=== PATIENT | male | born 1970 | race Caucasian/White ===

== ENCOUNTER → 2017-05-23 | Outpatient (CLI) | payer BC ==
[2017-05-23 13:54] LABS: ALBUMIN 3.7 GM/DL (3.2-5.2); ALBUMIN/GLOBULIN RATIO 1.19 (1.00-1.93); ALKALINE PHOSPHATASE 82 U/L (45-117); ALT/SGPT 39 U/L (12-78); ANION GAP 5 MEQ/L (8-16); AST/SGOT 25 U/L (15-37); BILIRUBIN,TOTAL 0.9 MG/DL (0.2-1.0); BLOOD UREA NITROGEN 26 MG/DL (7-18); CALCIUM LEVEL 9.2 MG/DL (8.5-10.1); CARBON DIOXIDE LEVEL 29 MEQ/L (21-32); CHLORIDE LEVEL 104 MEQ/L (98-107); CHOLESTEROL LEVEL 147 MG/DL (<200); CREATININE FOR GFR 1.28 MG/DL (0.70-1.30); GLOMERULAR FILTRATION RATE > 60.0 (>60); GLUCOSE, FASTING 98 MG/DL (70-105); POTASSIUM SERUM 3.5 MEQ/L (3.5-5.1); SODIUM LEVEL 138 MEQ/L (136-145); TOTAL PROTEIN 6.8 GM/DL (6.4-8.2); TRIGLYCERIDES LEVEL 141 MG/DL (<150)
[2017-05-23 13:57] LABS: MEAN CORPUSCULAR HGB CONC 34.3 g/dl (32.0-36.5); MEAN CORPUSCULAR VOLUME 87.3 fl (80.0-96.0)
== END ==
LOC: M WUC 08:37
PROVIDERS: ATTEND Family Medicine
DX: I10 Essential (primary) hypertension (principal)

== ENCOUNTER 2018-11-05 10:50 | Emergency (ER) | payer BC ==
[~2018-11-05] VITALS: Ht 182.9 cm; Wt 90.9 kg
[2018-11-05] MEDS ORDERED: HYDR25TAB (11:03)
[2018-11-05] MEDS ORDERED: FISH1000 PO (11:03)
[2018-11-05 11:22] LABS: BASO # 0.1 10^3/uL (0.0-0.2); BASO % 0.7 % (0.0-1.0); EOS # 0.3 10^3/uL (0.0-0.50); EOS % 3.7 % (0.0-3.0); HEMATOCRIT 52.2 % (42.0-52.0); HEMOGLOBIN 17.9 g/dl (13.5-17.5); LYMPH # 1.4 10^3/uL (1.5-4.5); LYMPH % 15.9 % (24.0-44.0); MEAN CORPUSCULAR HEMOGLOBIN 29.6 pg (27.0-33.0); MEAN CORPUSCULAR HGB CONC 34.3 g/dl (32.0-36.5); MEAN CORPUSCULAR VOLUME 86.3 fl (80.0-96.0); MONO # 0.6 10^3/uL (0.0-0.8); MONO % 6.9 % (0.0-5.0); NEUTROPHILS # 6.6 10^3/uL (1.8-7.7); NEUTROPHILS % 72.4 % (36.0-66.0); PLATELET COUNT, AUTOMATED 182 10^3/uL (150-450); RED BLOOD COUNT 6.05 10^6/uL (4.30-6.10); WHITE BLOOD COUNT 9.1 10^3/uL (4.0-10.0)
[2018-11-05] MEDS ORDERED: METOPROLOL TART 50 MG TAB PO ONE (11:30)
[2018-11-05] MEDS: METOPROLOL 5 MG/5 ML VIAL IV SCH ×6 (11:32→12:55)
[2018-11-05 11:33] LABS: INR 1.02; PARTIAL THROMBOPLASTIN TIME 27.8 SECONDS (25.4-37.6); PROTHROMBIN TIME 13.5 SECONDS (12.1-14.4)
[2018-11-05 11:44] LABS: D-DIMER QUANT < 270 ng/ml (<500)
[2018-11-05 11:58] LABS: BLOOD UREA NITROGEN 15 MG/DL (7-18); CALCIUM LEVEL 8.8 MG/DL (8.5-10.1); CARBON DIOXIDE LEVEL 28 MEQ/L (21-32); CHLORIDE LEVEL 104 MEQ/L (98-107); CPK CREATINE PHOSPHOKINASE 75 U/L (39-308); CREATININE FOR GFR 1.22 MG/DL (0.70-1.30); ETHYL ALCOHOL (ETHANOL) < 0.003 % (0.000-0.010); GLOMERULAR FILTRATION RATE > 60.0 (>56); GLUCOSE, FASTING 91 MG/DL (70-100); MAGNESIUM LEVEL 2.1 MG/DL (1.8-2.4); MB/CK RELATIVE INDEX 1.33 (< OR =4); NT-PRO BNP 773 PG/ML (<125); POTASSIUM SERUM 4.1 MEQ/L (3.5-5.1); SODIUM LEVEL 139 MEQ/L (136-145); TROPONIN I < 0.02 NG/ML (< 0.10)
[2018-11-05 12:04] LABS: AMPHETAMINES LEVEL URINE NEGATIVE (NEGATIVE); BARBITURATES URINE NEGATIVE (NEGATIVE); BENZODIAZEPINES URINE NEGATIVE (NEGATIVE); CANNABINOIDS URINE NEGATIVE (NEGATIVE); COCAINE METABOLITE URINE NEGATIVE (NEGATIVE); METHADONE URINE NEGATIVE (NEGATIVE); OPIATES URINE NEGATIVE (NEGATIVE); PHENCYCLIDINE URINE NEGATIVE (NEGATIVE)
[2018-11-05 12:45] VITALS: BP 123/86
--- NOTE | 2018-11-05 12:49 | REP ---
PORTABLE CHEST X-RAY: Sitting AP view. HISTORY: Chest pain. COMPARISON CHEST X-RAY: July 10, 2016. FINDINGS: EKG monitoring electrodes overlie the chest. Heart size is normal. Pulmonary vasculature is not increased. There is minimal linear fibrosis in the left lateral pleural angle. No infiltrate is seen. No significant bony abnormality. IMPRESSION: Minimal linear fibrosis in the left lateral pleural angle. Otherwise no active disease. Electronically Signed by Rahul Jackson MD 11/05/2018 05:04 P
[2018-11-05] MEDS ORDERED: ASPI325T25 PO (13:56)
[2018-11-05] MEDS ORDERED: ATEN25TA PO (13:56)
[2018-11-05] MEDS ORDERED: ASPIRIN 325 MG TAB PO ONE (14:00)
[2018-11-05 14:16] VITALS: BP 116/82
--- NOTE | 2018-11-07 07:51 | ECGEPIP ---
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
--- NOTE | 2018-11-07 07:52 | ECGEPIP ---
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
== END 2018-11-05 14:34 | disposition home or self-care (01) ==
LOC: M ED 10:50
DX: I48.91 Unspecified atrial fibrillation (principal); I10 Essential (primary) hypertension; Z79.899 Other long term (current) drug therapy
CPT/HCPCS: 36415; 71045; 80048; 80307; 82550; 82553; 83735; 83880; 84443; 84484; 85025; 85379; 85610; 85730; 93005; 93041; 94760; 96374; 99285; G0480

== ENCOUNTER 2018-12-04 07:00 | Emergency (ER) | payer BC ==
[~2018-12-04] VITALS: Ht 182.9 cm; Wt 90.9 kg
[~2018-12-04 07:00] MED LIST: ASPI325T25 PO; ATEN25TA PO; FISH1000 PO; HYDR25TAB
[2018-12-04] MEDS ORDERED: ACET1TAB55 PO (07:05)
[2018-12-04] MEDS ORDERED: NS 1,000 ML IV ONE (07:30)
--- NOTE | 2018-12-04 08:09 | REPVR ---
EXAM: CT Head Without Contrast EXAM DATE/TIME: 12/04/2018 7:22 AM CLINICAL HISTORY: 48 years old, male; Pain; Headache; Additional info: Sudden onset headache; Different than usual TECHNIQUE: Axial computed tomography images of the head/brain without contrast. All CT scans at this facility use at least one of these dose optimization techniques: automated exposure control; mA and/or kV adjustment per patient size (includes targeted exams where dose is matched to clinical indication); or iterative reconstruction. COMPARISON: No relevant prior studies available. FINDINGS: Brain: No CT evidence of acute cortical infarct. No mass effect. No edema. There is no evidence of parenchymal hemorrhage. No extra-axial collections. No subarachnoid blood. Ventricles: The ventricular system is midline and appropriate in size. No hydrocephalus. Bones/joints: There is no evidence of acute fracture. Sinuses: The demonstrated paranasal sinuses are free of air-fluid level or suspicious mass. Mastoid air cells: Mastoids are free of acute inflammatory change. Soft tissues: No large soft tissue hematoma. Please correlate clinically. Vasculature: Cerebrovascular calcifications are noted. IMPRESSION: No acute intracranial injury demonstrated. No intracranial hemorrhage. No evidence of acute cortical infarct. No mass effect. No edema. Followup as clinically warranted. Electronically signed by: Loco Soliman On 12/04/2018 08:08:50 AM
[2018-12-04] MEDS ORDERED: KETOROLAC 30 MG/ML VIAL (J1885) IV ONE (08:15)
[2018-12-04] MEDS ORDERED: diphenhydrAMINE INJ 50MG/ML VIAL (J1200) IV ONE (08:15)
[2018-12-04] MEDS ORDERED: METOCLOPRAMIDE INJ 10MG/2ML VIAL (J2765) IV ONE (08:15)
[2018-12-04 09:49] VITALS: BP 130/70
== END 2018-12-04 09:51 | disposition home or self-care (01) ==
LOC: M ED 07:00
DX: R51 Headache (principal); I10 Essential (primary) hypertension; I48.91 Unspecified atrial fibrillation; Z79.899 Other long term (current) drug therapy; Z79.82 Long term (current) use of aspirin
CPT/HCPCS: 70450; 96374; 96375; 99284; J1200; J1885; J2765

== ENCOUNTER → 2019-04-23 | Outpatient (CLI) | payer BC ==
[~2019-04-23] MED LIST changes: +ACET1TAB55 PO; +ASPI-255 PO; -ASPI325T25 PO
[2019-04-23 19:33] LABS: BLOOD UREA NITROGEN 21 MG/DL (7-18); CALCIUM LEVEL 8.5 MG/DL (8.5-10.1); CARBON DIOXIDE LEVEL 26 MEQ/L (21-32); CHLORIDE LEVEL 111 MEQ/L (98-107); CREATININE FOR GFR 1.25 MG/DL (0.70-1.30); GLOMERULAR FILTRATION RATE > 60.0 (>56); GLUCOSE, FASTING 89 MG/DL (70-100); POTASSIUM SERUM 4.3 MEQ/L (3.5-5.1); SODIUM LEVEL 144 MEQ/L (136-145)
== END ==
LOC: M WUC 16:57
PROVIDERS: ATTEND Internal Medicine Cardiovascular Disease
DX: I48.91 Unspecified atrial fibrillation (principal)

== ENCOUNTER → 2019-07-03 | Outpatient (REF) | payer BC ==
[2019-07-03 19:51] LABS: BLOOD UREA NITROGEN 19 MG/DL (7-18); CALCIUM LEVEL 9.3 MG/DL (8.5-10.1); CARBON DIOXIDE LEVEL 29 MEQ/L (21-32); CHLORIDE LEVEL 109 MEQ/L (98-107); GLOMERULAR FILTRATION RATE > 60.0 (>56); GLUCOSE, FASTING 99 MG/DL (70-100); POTASSIUM SERUM 4.1 MEQ/L (3.5-5.1); SODIUM LEVEL 144 MEQ/L (136-145)
== END ==
LOC: M LAB REF 15:20
PROVIDERS: ATTEND Physician Assistant
DX: I11.9 Hypertensive heart disease without heart failure (principal)

== ENCOUNTER → 2020-11-17 | Outpatient (CLI) | payer BC ==
[~2020-11-17] MED LIST changes: +HYDR-3490; -HYDR25TAB
[2020-11-17 11:33] LABS: BASO % 0.7 % (0.0-1.0); EOS # 0.3 10^3/uL (0.0-0.5); EOS % 6.4 % (0.0-3.0); HEMATOCRIT 47.3 % (42.0-52.0); HEMATOCRIT 47.4 % (42.0-52.0); HEMOGLOBIN 15.4 g/dl (13.5-17.5); HEMOGLOBIN 15.6 g/dl (13.5-17.5); LYMPH # 1.4 10^3/uL (1.5-5.0); LYMPH % 25.5 % (24.0-44.0); MEAN CORPUSCULAR HEMOGLOBIN 28.7 pg (27.0-33.0); MEAN CORPUSCULAR HEMOGLOBIN 29.3 pg (27.0-33.0); MEAN CORPUSCULAR HGB CONC 32.5 g/dl (32.0-36.5); MEAN CORPUSCULAR VOLUME 88.4 fl (80.0-96.0); MEAN CORPUSCULAR VOLUME 88.9 fl (80.0-96.0); MONO # 0.4 10^3/uL (0.0-0.8); MONO % 7.3 % (0.0-5.0); NEUTROPHILS # 3.2 10^3/uL (1.5-8.5); NEUTROPHILS % 59.9 % (36.0-66.0); PLATELET COUNT, AUTOMATED 175 10^3/uL (150-450); PLATELET COUNT, AUTOMATED 178 10^3/uL (150-450); RED BLOOD COUNT 5.32 10^6/uL (4.30-6.10); RED BLOOD COUNT 5.36 10^6/uL (4.30-6.10); WHITE BLOOD COUNT 5.3 10^3/uL (4.0-10.0); WHITE BLOOD COUNT 5.4 10^3/uL (4.0-10.0)
[2020-11-17 12:24] LABS: ALBUMIN 3.7 GM/DL (3.2-5.2); ALT/SGPT 31 U/L (12-78); BILIRUBIN,TOTAL 0.6 MG/DL (0.2-1.0); BLOOD UREA NITROGEN 23 MG/DL (7-18); CALCIUM LEVEL 8.9 MG/DL (8.5-10.1); CARBON DIOXIDE LEVEL 28 MEQ/L (21-32); CHLORIDE LEVEL 109 MEQ/L (98-107); CHOLESTEROL LEVEL 145 MG/DL (<200); CHOLESTEROL RISK RATIO 2.543 (<5); CREATININE FOR GFR 1.21 MG/DL (0.70-1.30); GLOMERULAR FILTRATION RATE > 60.0 (>56); GLUCOSE, FASTING 92 MG/DL (70-100); HDL CHOLESTEROL 57 MG/DL (>40); LDL CHOLESTEROL 71 MG/DL (<100); NON-HDL-C 88 MG/DL; POTASSIUM SERUM 4.5 MEQ/L (3.5-5.1); SODIUM LEVEL 142 MEQ/L (136-145); TOTAL PROTEIN 6.6 GM/DL (6.4-8.2); TRIGLYCERIDES LEVEL 84 MG/DL (<150)
[2020-11-17 12:25] LABS: BLOOD UREA NITROGEN 23 MG/DL (7-18); CALCIUM LEVEL 8.7 MG/DL (8.5-10.1); CARBON DIOXIDE LEVEL 27 MEQ/L (21-32); CHLORIDE LEVEL 110 MEQ/L (98-107); CREATININE FOR GFR 1.23 MG/DL (0.70-1.30); GLOMERULAR FILTRATION RATE > 60.0 (>56); GLUCOSE, FASTING 96 MG/DL (70-100); POTASSIUM SERUM 4.5 MEQ/L (3.5-5.1); SODIUM LEVEL 142 MEQ/L (136-145)
== END ==
LOC: M WUC 10:06
PROVIDERS: ATTEND Family Medicine
DX: I10 Essential (primary) hypertension (principal)

== ENCOUNTER → 2021-11-07 | Outpatient (CLI) | payer BC ==
[2021-11-07 11:06] LABS: ALBUMIN 3.7 GM/DL (3.2-5.2); ALT/SGPT 42 U/L (12-78); BILIRUBIN,TOTAL 0.6 MG/DL (0.2-1.0); BLOOD UREA NITROGEN 20 MG/DL (7-18); CARBON DIOXIDE LEVEL 27 MEQ/L (21-32); CHLORIDE LEVEL 109 MEQ/L (98-107); CHOLESTEROL LEVEL 162 MG/DL (<200); CHOLESTEROL RISK RATIO 2.892 (<5); CREATININE FOR GFR 1.24 MG/DL (0.70-1.30); FREE T4 0.86 NG/DL (0.76-1.46); GLOMERULAR FILTRATION RATE > 60.0 (>56); GLUCOSE, FASTING 102 MG/DL (70-100); HDL CHOLESTEROL 56 MG/DL (>40); LDL CHOLESTEROL 87 MG/DL (<100); NON-HDL-C 106 MG/DL; POTASSIUM SERUM 4.1 MEQ/L (3.5-5.1); SODIUM LEVEL 143 MEQ/L (136-145); TOTAL PROTEIN 6.7 GM/DL (6.4-8.2); TRIGLYCERIDES LEVEL 95 MG/DL (<150)
== END ==
LOC: M WUC 09:27
PROVIDERS: ATTEND Physician Assistant
DX: Z13.220 Encounter for screening for lipoid disorders (principal); I48.0 Paroxysmal atrial fibrillation

== ENCOUNTER → 2021-11-07 | Outpatient (CLI) | payer BC ==
[2021-11-07 10:33] LABS: HEMATOCRIT 49.4 % (42.0-52.0); HEMOGLOBIN 16.4 g/dl (13.5-17.5); MEAN CORPUSCULAR HEMOGLOBIN 28.5 pg (27.0-33.0); MEAN CORPUSCULAR HGB CONC 33.2 g/dl (32.0-36.5); MEAN CORPUSCULAR VOLUME 85.9 fl (80.0-96.0); PLATELET COUNT, AUTOMATED 218 10^3/uL (150-450); RED BLOOD COUNT 5.75 10^6/uL (4.30-6.10); WHITE BLOOD COUNT 5.9 10^3/uL (4.0-10.0)
[2021-11-07 11:03] LABS: ALBUMIN 3.8 GM/DL (3.2-5.2); ALT/SGPT 42 U/L (12-78); BILIRUBIN,TOTAL 0.6 MG/DL (0.2-1.0); BLOOD UREA NITROGEN 21 MG/DL (7-18); CALCIUM LEVEL 8.9 MG/DL (8.5-10.1); CARBON DIOXIDE LEVEL 27 MEQ/L (21-32); CHLORIDE LEVEL 110 MEQ/L (98-107); CHOLESTEROL LEVEL 161 MG/DL (<200); CHOLESTEROL RISK RATIO 2.875 (<5); CREATININE FOR GFR 1.25 MG/DL (0.70-1.30); GLOMERULAR FILTRATION RATE > 60.0 (>56); GLUCOSE, FASTING 101 MG/DL (70-100); HDL CHOLESTEROL 56 MG/DL (>40); LDL CHOLESTEROL 86 MG/DL (<100); NON-HDL-C 105 MG/DL; POTASSIUM SERUM 4.1 MEQ/L (3.5-5.1); SODIUM LEVEL 143 MEQ/L (136-145); TOTAL PROTEIN 6.7 GM/DL (6.4-8.2); TRIGLYCERIDES LEVEL 94 MG/DL (<150)
== END ==
LOC: M WUC 09:25
PROVIDERS: ATTEND Family Medicine
DX: Z12.5 Encounter for screening for malignant neoplasm of prostate (principal); I10 Essential (primary) hypertension
CPT/HCPCS: 36415; 80053; 80061; 85027; G0103

== ENCOUNTER 2021-12-11 13:35 | Inpatient (IN) | payer BC ==
[~2021-12-11] VITALS: Ht 182.9 cm; Wt 91.5 kg
[2021-12-11 14:00] VITALS: BP 146/104
[2021-12-11] MEDS ORDERED: ACETAMINOPHEN TAB 650MG DOSE (2X325MG) PO PRN (15:20)
[2021-12-11] MEDS: REMEDY PHYTOPLEX Z-GUARD PASTE 113GM TUBE (FROM STOREROOM PRODUCT) TOP SCH ×2 (16:00→21:00)
[2021-12-11] MEDS ORDERED: ELIQ5TAB PO (16:09)
[2021-12-11] MEDS ORDERED: DOCU5LIQ PO (16:09)
[2021-12-11] MEDS ORDERED: AMLO1TAB25 PO (16:09)
[2021-12-11] MEDS ORDERED: ATEN100T PO (16:09)
[2021-12-11] MEDS ORDERED: LISI40TA4 PO (16:09)
[2021-12-11] MEDS ORDERED: SERT50TA29 PO (16:09)
[2021-12-11] MEDS ORDERED: ATOR80TA59 PO (16:09)
[2021-12-11] MEDS ORDERED: HYDR-3490 PO (16:09)
[2021-12-11] MEDS ORDERED: HOME MED LIST COMPLETE! XX SCH (16:10)
[2021-12-11] MEDS: PANTOPRAZOLE 40MG TAB (PROTONIX) PO SCH (17:51)
[2021-12-11] MEDS: **hydrALAZINE HCL** 25 MG TAB PO SCH ×2 (17:52→23:59)
[2021-12-11 17:55] LABS: INR 1.21; PARTIAL THROMBOPLASTIN TIME 30.6 SECONDS (25.9-37.0); PROTHROMBIN TIME 15.7 SECONDS (12.7-14.5)
[2021-12-11 19:50] VITALS: BP 103/59
[2021-12-11] MEDS ORDERED: SENNA 8.6 MG TAB (SENOKOT) PO SCH (21:00)
[2021-12-11] MEDS: DOCUSATE SODIUM 100MG CAPSULE PO SCH (21:00)
[2021-12-11] MEDS: ATORVASTATIN 20 MG TAB PO SCH (21:23)
[2021-12-11] MEDS: APIXABAN 5 MG TAB (ELIQUIS) PO SCH (21:23)
[2021-12-11 23:54] VITALS: BP 105/76
[2021-12-12 05:28] VITALS: BP 106/75
[2021-12-12] MEDS: **hydrALAZINE HCL** 25 MG TAB PO SCH ×3 (05:33→17:56)
[2021-12-12 06:41] LABS: BASO # 0.1 10^3/uL (0.0-0.2); BASO % 0.4 % (0.0-1.0); EOS # 0.4 10^3/uL (0.0-0.5); EOS % 3.4 % (0.0-3.0); HEMATOCRIT 46.8 % (42.0-52.0); HEMOGLOBIN 15.9 g/dl (13.5-17.5); LYMPH % 15.4 % (24.0-44.0); MEAN CORPUSCULAR HEMOGLOBIN 28.6 pg (27.0-33.0); MEAN CORPUSCULAR VOLUME 84.3 fl (80.0-96.0); NEUTROPHILS # 9.4 10^3/uL (1.5-8.5); PLATELET COUNT, AUTOMATED 269 10^3/uL (150-450); RED BLOOD COUNT 5.55 10^6/uL (4.30-6.10)
[2021-12-12 07:12] LABS: ALBUMIN 3.2 GM/DL (3.2-5.2); CALCIUM LEVEL 8.7 MG/DL (8.5-10.1); CREATININE FOR GFR 1.49 MG/DL (0.70-1.30); GLOMERULAR FILTRATION RATE 52.5 (>56); POTASSIUM SERUM 3.7 MEQ/L (3.5-5.1); TOTAL PROTEIN 6.4 GM/DL (6.4-8.2)
[2021-12-12] MEDS: DOCUSATE SODIUM 100MG CAPSULE PO SCH (08:12)
[2021-12-12] MEDS: APIXABAN 5 MG TAB (ELIQUIS) PO SCH ×2 (08:12→20:45)
[2021-12-12] MEDS: PANTOPRAZOLE 40MG TAB (PROTONIX) PO SCH (08:12)
[2021-12-12] MEDS: REMEDY PHYTOPLEX Z-GUARD PASTE 113GM TUBE (FROM STOREROOM PRODUCT) TOP SCH ×3 (08:13→20:46)
[2021-12-12] MEDS ORDERED: lisinopriL 40 MG TAB PO SCH (09:00)
[2021-12-12] MEDS ORDERED: atenoloL 50 MG TAB PO SCH (09:00)
[2021-12-12] MEDS ORDERED: SERTRALINE HCL 50 MG TAB PO SCH (09:00)
[2021-12-12 12:19] VITALS: BP 102/58
[2021-12-12 14:00] VITALS: BP 103/72
[2021-12-12] MEDS ORDERED: PILL CUTTER 1 EACH XX PRN (14:15)
[2021-12-12] MEDS: DICLOFENAC EPOLAMINE 1.3 % PATCH TOP SCH ×2 (15:58→20:46)
[2021-12-12] MEDS: ACETAMINOPHEN 500 MG TAB PO SCH ×2 (15:58→20:45)
[2021-12-12 20:00] VITALS: BP 105/85
[2021-12-12] MEDS: SERTRALINE HCL 25 MG TABLET PO SCH (20:45)
[2021-12-12] MEDS: ATORVASTATIN 20 MG TAB PO SCH (20:45)
[2021-12-12] MEDS: hydrOXYzine 25 MG TAB PO SCH (20:45)
[2021-12-13] MEDS: **hydrALAZINE HCL** 25 MG TAB PO SCH ×4 (05:58→18:00)
[2021-12-13 06:00] VITALS: BP 100/80
[2021-12-13 07:13] LABS: BASO # 0.1 10^3/uL (0.0-0.2); BASO % 0.5 % (0.0-1.0); EOS # 0.4 10^3/uL (0.0-0.5); EOS % 3.9 % (0.0-3.0); HEMATOCRIT 44.9 % (42.0-52.0); LYMPH % 20.1 % (24.0-44.0); MEAN CORPUSCULAR HEMOGLOBIN 28.4 pg (27.0-33.0); MEAN CORPUSCULAR HGB CONC 33.4 g/dl (32.0-36.5); MEAN CORPUSCULAR VOLUME 84.9 fl (80.0-96.0); MONO # 0.9 10^3/uL (0.0-0.8); MONO % 8.7 % (2.0-8.0); NEUTROPHILS # 6.6 10^3/uL (1.5-8.5); PLATELET COUNT, AUTOMATED 238 10^3/uL (150-450); RED BLOOD COUNT 5.29 10^6/uL (4.30-6.10)
[2021-12-13] MEDS: PANTOPRAZOLE 40MG TAB (PROTONIX) PO SCH (08:18)
[2021-12-13] MEDS: APIXABAN 5 MG TAB (ELIQUIS) PO SCH ×2 (08:18→21:15)
[2021-12-13] MEDS: SERTRALINE HCL 50 MG TAB PO SCH (08:18)
[2021-12-13] MEDS: hydroCHLOROthiazide 12.5 MG CAPSULE PO SCH (08:19)
[2021-12-13] MEDS: ACETAMINOPHEN 500 MG TAB PO SCH ×3 (08:19→21:15)
[2021-12-13] MEDS: DICLOFENAC EPOLAMINE 1.3 % PATCH TOP SCH ×2 (08:19→21:15)
[2021-12-13] MEDS: REMEDY PHYTOPLEX Z-GUARD PASTE 113GM TUBE (FROM STOREROOM PRODUCT) TOP SCH ×3 (08:20→21:00)
[2021-12-13] MEDS: atenoloL 25 MG TAB PO SCH (08:20)
[2021-12-13] MEDS ORDERED: SERTRALINE HCL 50 MG TAB PO SCH (09:00)
[2021-12-13] MEDS ORDERED: SERTRALINE HCL 25 MG TABLET PO SCH (09:00)
[2021-12-13 14:00] VITALS: BP 109/69
[2021-12-13] MEDS ORDERED: RAMELTEON 8 MG TAB (ROZEREM) PO SCH (14:35)
[2021-12-13 20:14] VITALS: BP 129/72
[2021-12-13] MEDS: SERTRALINE HCL 25 MG TABLET PO SCH (21:14)
[2021-12-13] MEDS: hydrOXYzine 25 MG TAB PO SCH (21:15)
[2021-12-13] MEDS: ATORVASTATIN 20 MG TAB PO SCH (21:15)
[2021-12-14 00:15] VITALS: BP 105/74
[2021-12-14 05:17] VITALS: BP 115/86
[2021-12-14] MEDS: **hydrALAZINE HCL** 25 MG TAB PO SCH ×2 (05:19)
[2021-12-14 08:36] LABS: BASO # 0.1 10^3/uL (0.0-0.2); BASO % 0.7 % (0.0-1.0); EOS # 0.3 10^3/uL (0.0-0.5); EOS % 3.6 % (0.0-3.0); HEMATOCRIT 46.6 % (42.0-52.0); HEMOGLOBIN 15.3 g/dl (13.5-17.5); LYMPH # 1.8 10^3/uL (1.5-5.0); LYMPH % 20.1 % (24.0-44.0); MEAN CORPUSCULAR HEMOGLOBIN 28.7 pg (27.0-33.0); MEAN CORPUSCULAR HGB CONC 32.8 g/dl (32.0-36.5); MEAN CORPUSCULAR VOLUME 87.4 fl (80.0-96.0); MONO # 0.6 10^3/uL (0.0-0.8); MONO % 6.2 % (2.0-8.0); NEUTROPHILS # 6.2 10^3/uL (1.5-8.5); NEUTROPHILS % 68.8 % (36.0-66.0); PLATELET COUNT, AUTOMATED 229 10^3/uL (150-450); RED BLOOD COUNT 5.33 10^6/uL (4.30-6.10)
[2021-12-14] MEDS: REMEDY PHYTOPLEX Z-GUARD PASTE 113GM TUBE (FROM STOREROOM PRODUCT) TOP SCH ×3 (09:00→21:00)
[2021-12-14 09:03] LABS: CREATININE FOR GFR 1.41 MG/DL (0.70-1.30); POTASSIUM SERUM 3.8 MEQ/L (3.5-5.1)
[2021-12-14] MEDS: hydroCHLOROthiazide 12.5 MG CAPSULE PO SCH (09:23)
[2021-12-14] MEDS: SERTRALINE HCL 50 MG TAB PO SCH (09:23)
[2021-12-14] MEDS: PANTOPRAZOLE 40MG TAB (PROTONIX) PO SCH (09:23)
[2021-12-14] MEDS: atenoloL 25 MG TAB PO SCH (09:23)
[2021-12-14] MEDS: APIXABAN 5 MG TAB (ELIQUIS) PO SCH ×2 (09:23→21:17)
[2021-12-14] MEDS: ACETAMINOPHEN 500 MG TAB PO SCH ×3 (09:24→21:18)
[2021-12-14] MEDS: DICLOFENAC EPOLAMINE 1.3 % PATCH TOP SCH ×2 (09:24→21:18)
[2021-12-14 14:00] VITALS: BP 110/74
[2021-12-14 20:00] VITALS: BP 107/71
[2021-12-14] MEDS: SERTRALINE HCL 25 MG TABLET PO SCH (21:16)
[2021-12-14] MEDS: ATORVASTATIN 20 MG TAB PO SCH (21:17)
[2021-12-14] MEDS: hydrOXYzine 25 MG TAB PO SCH (21:17)
[2021-12-15 06:00] VITALS: BP 110/73
[2021-12-15] MEDS: PANTOPRAZOLE 40MG TAB (PROTONIX) PO SCH (08:25)
[2021-12-15] MEDS: DICLOFENAC EPOLAMINE 1.3 % PATCH TOP SCH ×2 (08:25→21:01)
[2021-12-15] MEDS: REMEDY PHYTOPLEX Z-GUARD PASTE 113GM TUBE (FROM STOREROOM PRODUCT) TOP SCH ×3 (08:26→21:00)
[2021-12-15] MEDS: SERTRALINE HCL 50 MG TAB PO SCH (08:26)
[2021-12-15] MEDS: APIXABAN 5 MG TAB (ELIQUIS) PO SCH ×2 (08:26→21:00)
[2021-12-15] MEDS: ACETAMINOPHEN 500 MG TAB PO SCH ×3 (08:26→21:00)
[2021-12-15] MEDS: atenoloL 25 MG TAB PO SCH (08:29)
[2021-12-15 14:00] VITALS: BP 119/84
[2021-12-15 20:00] VITALS: BP 132/77
[2021-12-15] MEDS: ATORVASTATIN 20 MG TAB PO SCH (21:00)
[2021-12-15] MEDS: SERTRALINE HCL 25 MG TABLET PO SCH (21:00)
[2021-12-15] MEDS: hydrOXYzine 25 MG TAB PO SCH (21:01)
[2021-12-16 05:11] VITALS: BP 129/81
[2021-12-16] MEDS: REMEDY PHYTOPLEX Z-GUARD PASTE 113GM TUBE (FROM STOREROOM PRODUCT) TOP SCH ×3 (07:10→20:39)
[2021-12-16] MEDS: ACETAMINOPHEN 500 MG TAB PO SCH ×3 (07:22→20:39)
[2021-12-16] MEDS: PANTOPRAZOLE 40MG TAB (PROTONIX) PO SCH (07:22)
[2021-12-16] MEDS: SERTRALINE HCL 50 MG TAB PO SCH (07:22)
[2021-12-16] MEDS: atenoloL 25 MG TAB PO SCH (07:23)
[2021-12-16] MEDS: DICLOFENAC EPOLAMINE 1.3 % PATCH TOP SCH ×2 (07:23→20:38)
[2021-12-16] MEDS: APIXABAN 5 MG TAB (ELIQUIS) PO SCH ×2 (07:23→20:39)
[2021-12-16 14:00] VITALS: BP 136/77
[2021-12-16 19:22] VITALS: BP 124/9
[2021-12-16] MEDS: ATORVASTATIN 20 MG TAB PO SCH (20:38)
[2021-12-16] MEDS: SERTRALINE HCL 25 MG TABLET PO SCH (20:38)
[2021-12-16] MEDS: hydrOXYzine 25 MG TAB PO SCH (20:39)
[2021-12-17 05:38] VITALS: BP 137/87
[2021-12-17] MEDS: REMEDY PHYTOPLEX Z-GUARD PASTE 113GM TUBE (FROM STOREROOM PRODUCT) TOP SCH ×3 (09:00→20:17)
[2021-12-17] MEDS: APIXABAN 5 MG TAB (ELIQUIS) PO SCH ×2 (09:23→20:17)
[2021-12-17] MEDS: PANTOPRAZOLE 40MG TAB (PROTONIX) PO SCH (09:23)
[2021-12-17] MEDS: ACETAMINOPHEN 500 MG TAB PO SCH ×3 (09:26→20:16)
[2021-12-17] MEDS: atenoloL 25 MG TAB PO SCH (09:26)
[2021-12-17] MEDS: DICLOFENAC EPOLAMINE 1.3 % PATCH TOP SCH ×2 (09:27→20:16)
[2021-12-17] MEDS: SERTRALINE HCL 50 MG TAB PO SCH (09:27)
[2021-12-17 10:36] LABS: BASO # 0.1 10^3/uL (0.0-0.2); BASO % 0.8 % (0.0-1.0); EOS # 0.3 10^3/uL (0.0-0.5); EOS % 3.1 % (0.0-3.0); HEMATOCRIT 44.8 % (42.0-52.0); HEMOGLOBIN 14.7 g/dl (13.5-17.5); LYMPH # 1.4 10^3/uL (1.5-5.0); LYMPH % 16.9 % (24.0-44.0); MEAN CORPUSCULAR HEMOGLOBIN 28.4 pg (27.0-33.0); MEAN CORPUSCULAR HGB CONC 32.8 g/dl (32.0-36.5); MEAN CORPUSCULAR VOLUME 86.5 fl (80.0-96.0); MONO # 0.3 10^3/uL (0.0-0.8); MONO % 3.8 % (2.0-8.0); PLATELET COUNT, AUTOMATED 229 10^3/uL (150-450); RED BLOOD COUNT 5.18 10^6/uL (4.30-6.10)
[2021-12-17 10:59] LABS: BLOOD UREA NITROGEN 18 MG/DL (7-18); CALCIUM LEVEL 9.1 MG/DL (8.5-10.1); CARBON DIOXIDE LEVEL 25 MEQ/L (21-32); CHLORIDE LEVEL 109 MEQ/L (98-107); CREATININE FOR GFR 1.28 MG/DL (0.70-1.30); GLOMERULAR FILTRATION RATE > 60.0 (>56); GLUCOSE, FASTING 128 MG/DL (70-100); POTASSIUM SERUM 3.5 MEQ/L (3.5-5.1); SODIUM LEVEL 142 MEQ/L (136-145)
[2021-12-17 14:00] VITALS: BP 160/96
[2021-12-17] MEDS: hydrOXYzine 25 MG TAB PO SCH (20:17)
[2021-12-17] MEDS: ATORVASTATIN 20 MG TAB PO SCH (20:17)
[2021-12-17] MEDS: SERTRALINE HCL 25 MG TABLET PO SCH (20:17)
[2021-12-17 20:26] VITALS: BP 138/80
[2021-12-18 05:00] VITALS: BP 132/91
[2021-12-18] MEDS: REMEDY PHYTOPLEX Z-GUARD PASTE 113GM TUBE (FROM STOREROOM PRODUCT) TOP SCH ×3 (09:00→20:05)
[2021-12-18] MEDS: SERTRALINE HCL 50 MG TAB PO SCH (09:23)
[2021-12-18] MEDS: atenoloL 25 MG TAB PO SCH (09:23)
[2021-12-18] MEDS: PANTOPRAZOLE 40MG TAB (PROTONIX) PO SCH (09:23)
[2021-12-18] MEDS: APIXABAN 5 MG TAB (ELIQUIS) PO SCH ×2 (09:23→20:04)
[2021-12-18] MEDS: DICLOFENAC EPOLAMINE 1.3 % PATCH TOP SCH ×2 (09:24→20:05)
[2021-12-18] MEDS: ACETAMINOPHEN 500 MG TAB PO SCH ×3 (09:24→20:05)
[2021-12-18 14:00] VITALS: BP 136/92
[2021-12-18 20:00] VITALS: BP 143/93
[2021-12-18] MEDS: SERTRALINE HCL 25 MG TABLET PO SCH (20:04)
[2021-12-18] MEDS: hydrOXYzine 25 MG TAB PO SCH (20:04)
[2021-12-18] MEDS: ATORVASTATIN 20 MG TAB PO SCH (20:04)
[2021-12-19 06:00] VITALS: BP 134/83
[2021-12-19 06:52] LABS: BASO # 0.1 10^3/uL (0.0-0.2); BASO % 0.8 % (0.0-1.0); EOS # 0.3 10^3/uL (0.0-0.5); EOS % 4.7 % (0.0-3.0); HEMATOCRIT 39.7 % (42.0-52.0); HEMOGLOBIN 13.5 g/dl (13.5-17.5); LYMPH # 1.3 10^3/uL (1.5-5.0); LYMPH % 22.3 % (24.0-44.0); MEAN CORPUSCULAR HEMOGLOBIN 28.8 pg (27.0-33.0); MEAN CORPUSCULAR VOLUME 84.8 fl (80.0-96.0); MONO # 0.4 10^3/uL (0.0-0.8); NEUTROPHILS # 3.9 10^3/uL (1.5-8.5); NEUTROPHILS % 65.9 % (36.0-66.0); PLATELET COUNT, AUTOMATED 176 10^3/uL (150-450); RED BLOOD COUNT 4.68 10^6/uL (4.30-6.10)
[2021-12-19 07:17] LABS: BLOOD UREA NITROGEN 17 MG/DL (7-18); CALCIUM LEVEL 8.4 MG/DL (8.5-10.1); CARBON DIOXIDE LEVEL 28 MEQ/L (21-32); CHLORIDE LEVEL 112 MEQ/L (98-107); CREATININE FOR GFR 1.16 MG/DL (0.70-1.30); GLOMERULAR FILTRATION RATE > 60.0 (>56); GLUCOSE, FASTING 98 MG/DL (70-100); POTASSIUM SERUM 3.8 MEQ/L (3.5-5.1); SODIUM LEVEL 145 MEQ/L (136-145)
[2021-12-19] MEDS: REMEDY PHYTOPLEX Z-GUARD PASTE 113GM TUBE (FROM STOREROOM PRODUCT) TOP SCH ×3 (09:00→21:15)
[2021-12-19] MEDS: DICLOFENAC EPOLAMINE 1.3 % PATCH TOP SCH ×2 (09:10→21:13)
[2021-12-19] MEDS: SERTRALINE HCL 50 MG TAB PO SCH (09:11)
[2021-12-19] MEDS: PANTOPRAZOLE 40MG TAB (PROTONIX) PO SCH (09:11)
[2021-12-19] MEDS: APIXABAN 5 MG TAB (ELIQUIS) PO SCH ×2 (09:11→21:13)
[2021-12-19] MEDS: atenoloL 25 MG TAB PO SCH (09:11)
[2021-12-19] MEDS: ACETAMINOPHEN 500 MG TAB PO SCH ×3 (09:12→21:14)
[2021-12-19] MEDS: amLODIPine 5 MG TAB PO SCH (11:23)
[2021-12-19 14:00] VITALS: BP 135/82
[2021-12-19 20:00] VITALS: BP 138/100
[2021-12-19] MEDS ORDERED: SERTRALINE HCL 25 MG TABLET PO ONE (21:00)
[2021-12-19] MEDS: hydrOXYzine 25 MG TAB PO SCH (21:13)
[2021-12-19] MEDS: ATORVASTATIN 20 MG TAB PO SCH (21:13)
[2021-12-20 06:00] VITALS: BP 155/104
[2021-12-20] MEDS: APIXABAN 5 MG TAB (ELIQUIS) PO SCH ×2 (09:11→20:12)
[2021-12-20] MEDS: PANTOPRAZOLE 40MG TAB (PROTONIX) PO SCH (09:11)
[2021-12-20] MEDS: ACETAMINOPHEN 500 MG TAB PO SCH ×3 (09:11→20:13)
[2021-12-20] MEDS: atenoloL 25 MG TAB PO SCH (09:12)
[2021-12-20] MEDS: amLODIPine 5 MG TAB PO SCH (09:12)
[2021-12-20] MEDS: DICLOFENAC EPOLAMINE 1.3 % PATCH TOP SCH ×2 (09:12→20:14)
[2021-12-20] MEDS: REMEDY PHYTOPLEX Z-GUARD PASTE 113GM TUBE (FROM STOREROOM PRODUCT) TOP SCH ×3 (09:13→20:13)
[2021-12-20 14:00] VITALS: BP 121/80
[2021-12-20 20:00] VITALS: BP 138/98
[2021-12-20] MEDS: ATORVASTATIN 20 MG TAB PO SCH (20:13)
[2021-12-20] MEDS: hydrOXYzine 25 MG TAB PO SCH (20:20)
[2021-12-20] MEDS ORDERED: SERTRALINE HCL 25 MG TABLET PO SCH (21:00)
[2021-12-21 06:00] VITALS: BP 147/93
[2021-12-21 08:45] VITALS: BP 147/93
[2021-12-21] MEDS: atenoloL 25 MG TAB PO SCH (08:45)
[2021-12-21] MEDS: PANTOPRAZOLE 40MG TAB (PROTONIX) PO SCH (08:45)
[2021-12-21] MEDS: APIXABAN 5 MG TAB (ELIQUIS) PO SCH (08:45)
[2021-12-21] MEDS: amLODIPine 5 MG TAB PO SCH (08:45)
[2021-12-21] MEDS: ACETAMINOPHEN 500 MG TAB PO SCH (08:47)
[2021-12-21] MEDS: DICLOFENAC EPOLAMINE 1.3 % PATCH TOP SCH (08:47)
[2021-12-21] MEDS: REMEDY PHYTOPLEX Z-GUARD PASTE 113GM TUBE (FROM STOREROOM PRODUCT) TOP SCH (08:47)
[2021-12-21] MEDS ORDERED: ELIQ5TAB PO (09:59)
[2021-12-21] MEDS ORDERED: ATEN50TA2 PO (09:59)
[2021-12-21] MEDS ORDERED: AMLO1TAB25 PO (09:59)
[2021-12-21] MEDS ORDERED: ATOR80TA59 PO (09:59)
[2021-12-21] MEDS ORDERED: HYDR-3363 PO (09:59)
[2021-12-21] MEDS ORDERED: SERT25TA21 PO (09:59)
== END 2021-12-21 14:00 | disposition home or self-care (01) | DRG 58 ==
LOC: M MS5PR 13:35 → M PM&R 13:58
PROVIDERS: ADMIT Physical Medicine & Rehabilitation; ATTEND Physical Medicine & Rehabilitation
DX: I69.391 Dysphagia following cerebral infarction (principal); R13.10 Dysphagia, unspecified; I48.91 Unspecified atrial fibrillation; I12.9 Hypertensive chronic kidney disease with stage 1 through stage 4 chronic kidney disease, or unspecified chronic kidney disease; E78.5 Hyperlipidemia, unspecified; F32.A Depression, unspecified; R19.7 Diarrhea, unspecified; I69.334 Monoplegia of upper limb following cerebral infarction affecting left non-dominant side; N48.89 Other specified disorders of penis; N18.9 Chronic kidney disease, unspecified; N17.9 Acute kidney failure, unspecified; G47.00 Insomnia, unspecified; F41.9 Anxiety disorder, unspecified; Z74.09 Other reduced mobility; Z74.1 Need for assistance with personal care; Z79.01 Long term (current) use of anticoagulants; Z79.899 Other long term (current) drug therapy

== ENCOUNTER → 2022-01-31 | Outpatient (RCR) | payer BC ==
[~2022-01-31] MED LIST changes: +AMLO1TAB25 PO; +ATEN100T PO; +ATEN50TA2 PO; +ATOR80TA59 PO; +DOCU5LIQ PO; +ELIQ5TAB PO; +HYDR-3363 PO; +HYDR-3490 PO; +LISI40TA4 PO; +SERT25TA21 PO; +SERT50TA29 PO
== END ==
LOC: M PT 01-01 09:11 → M ST 01-01 09:21 → M OT 01-02 13:00 → M PT 01-03 13:45 → M OT 01-04 12:05 → M PT 01-10 10:59 → M ST 01-10 15:00 → M PT 01-11 10:08 → M ST 01-11 14:00 → M OT 01-14 13:23 → M ST 01-14 13:33 → M OT 01-15 14:15 → M PT 01-15 15:01 → M ST 01-16 14:59 → M PT 01-17 14:30 → M ST 01-21 14:00 → M PT 01-23 12:51 → M ST 01-24 12:30 → M OT 01-25 12:56 → M PT 01-29 14:30 → M ST 01-30 15:45 → M OT 12:30
PROVIDERS: ATTEND Family Medicine
DX: I63.9 Cerebral infarction, unspecified (principal); R13.10 Dysphagia, unspecified; R26.9 Unspecified abnormalities of gait and mobility

== ENCOUNTER → 2022-01-31 | Outpatient (CLI) | payer BC ==
[2022-01-31 14:23] LABS: HEMATOCRIT 44.8 % (42.0-52.0); HEMOGLOBIN 15.5 g/dl (13.5-17.5); MEAN CORPUSCULAR HEMOGLOBIN 28.7 pg (27.0-33.0); MEAN CORPUSCULAR HGB CONC 34.6 g/dl (32.0-36.5); PLATELET COUNT, AUTOMATED 189 10^3/uL (150-450)
[2022-01-31 15:34] LABS: ALBUMIN 3.9 GM/DL (3.2-5.2); ALT/SGPT 50 U/L (12-78); BILIRUBIN,TOTAL 1.1 MG/DL (0.2-1.0); BLOOD UREA NITROGEN 15 MG/DL (7-18); CALCIUM LEVEL 8.9 MG/DL (8.5-10.1); CARBON DIOXIDE LEVEL 26 MEQ/L (21-32); CHLORIDE LEVEL 111 MEQ/L (98-107); GLOMERULAR FILTRATION RATE > 60.0 (>56); GLUCOSE, FASTING 88 MG/DL (70-100); POTASSIUM SERUM 3.8 MEQ/L (3.5-5.1); SODIUM LEVEL 144 MEQ/L (136-145); TOTAL PROTEIN 6.7 GM/DL (6.4-8.2)
== END ==
LOC: M LAB 13:21
PROVIDERS: ATTEND Physician Assistant
DX: I63.9 Cerebral infarction, unspecified (principal); I48.0 Paroxysmal atrial fibrillation

== ENCOUNTER 2022-02-28 10:45 | Outpatient (RCR) | payer BC | END 2022-03-02 | LOC: M OT 10:45 | PROVIDERS: ATTEND Family Medicine | DX: I63.9 Cerebral infarction, unspecified (principal) ==

== ENCOUNTER 2022-03-28 12:00 | Outpatient (RCR) | payer BC | END 2022-04-02 | LOC: M ST 12:00 | PROVIDERS: ATTEND Family Medicine | DX: Z86.73 Personal history of transient ischemic attack (TIA), and cerebral infarction without residual deficits (principal) ==

== ENCOUNTER → 2022-04-11 | Outpatient (CLI) | payer BC ==
[2022-04-11 16:11] LABS: BASO % 0.6 % (0.0-1.0); EOS # 0.1 10^3/uL (0.0-0.5); EOS % 2.4 % (0.0-3.0); HEMATOCRIT 52.7 % (42.0-52.0); HEMOGLOBIN 17.1 g/dl (13.5-17.5); LYMPH # 1.3 10^3/uL (1.5-5.0); LYMPH % 24.5 % (24.0-44.0); MEAN CORPUSCULAR HEMOGLOBIN 27.1 pg (27.0-33.0); MEAN CORPUSCULAR HGB CONC 32.4 g/dl (32.0-36.5); MEAN CORPUSCULAR VOLUME 83.4 fl (80.0-96.0); MONO # 0.4 10^3/uL (0.0-0.8); MONO % 6.9 % (2.0-8.0); NEUTROPHILS # 3.5 10^3/uL (1.5-8.5); NEUTROPHILS % 65.2 % (36.0-66.0); PLATELET COUNT, AUTOMATED 204 10^3/uL (150-450); RED BLOOD COUNT 6.32 10^6/uL (4.30-6.10); WHITE BLOOD COUNT 5.4 10^3/uL (4.0-10.0)
[2022-04-11 16:45] LABS: ALBUMIN 3.7 GM/DL (3.2-5.2); CALCIUM LEVEL 9.7 MG/DL (8.5-10.1); CREATININE FOR GFR 1.43 MG/DL (0.70-1.30); GLOMERULAR FILTRATION RATE 55.1 (>56); POTASSIUM SERUM 3.4 MEQ/L (3.5-5.1); THYROID STIMULATING HORMONE 1.46 uIU/ML (0.358-3.740); TOTAL PROTEIN 6.9 GM/DL (6.4-8.2)
== END ==
LOC: M WUC 11:23
PROVIDERS: ATTEND Family Medicine
DX: R53.81 Other malaise (principal)

== ENCOUNTER 2022-05-01 15:30 | Outpatient (RCR) | payer BC | END 2022-05-02 | LOC: M ST 15:30 | PROVIDERS: ATTEND Family Medicine | DX: R47.02 Dysphasia (principal) ==

== ENCOUNTER 2022-05-16 12:06 | Outpatient (RCR) | payer BC | END 2022-06-02 | LOC: M ST 12:06 | PROVIDERS: ATTEND Family Medicine | DX: I63.9 Cerebral infarction, unspecified (principal); M62.81 Muscle weakness (generalized); R41.841 Cognitive communication deficit ==

== ENCOUNTER → 2022-06-11 | Outpatient (CLI) | payer BC ==
[2022-06-11 10:52] LABS: BLOOD UREA NITROGEN 16 MG/DL (7-18); CALCIUM LEVEL 8.8 MG/DL (8.5-10.1); CARBON DIOXIDE LEVEL 31 MEQ/L (21-32); CHLORIDE LEVEL 106 MEQ/L (98-107); CHOLESTEROL LEVEL 90 MG/DL (<200); CHOLESTEROL RISK RATIO 1.666 (<5); CREATININE FOR GFR 1.31 MG/DL (0.70-1.30); GLOMERULAR FILTRATION RATE > 60.0 (>56); GLUCOSE, FASTING 91 MG/DL (70-100); HDL CHOLESTEROL 54 MG/DL (>40); LDL CHOLESTEROL 13 MG/DL (<100); MAGNESIUM LEVEL 2.1 MG/DL (1.8-2.4); NON-HDL-C 36 MG/DL; NT-PRO BNP 420 PG/ML (<125); POTASSIUM SERUM 3.6 MEQ/L (3.5-5.1); SODIUM LEVEL 142 MEQ/L (136-145); TRIGLYCERIDES LEVEL 113 MG/DL (<150)
== END ==
LOC: M WUC 08:28
PROVIDERS: ATTEND Physician Assistant
DX: I11.9 Hypertensive heart disease without heart failure (principal); R60.0 Localized edema; I63.9 Cerebral infarction, unspecified

== ENCOUNTER → 2022-10-08 | Outpatient (CLI) | payer BC | LOC: M SLEEP HO 12:30 | PROVIDERS: ATTEND Physician Assistant | DX: G47.9 Sleep disorder, unspecified (principal) ==

== ENCOUNTER → 2024-08-30 | Outpatient (CLI) | payer BC | LOC: M SLEEP 20:00 | PROVIDERS: ATTEND Physician Assistant | DX: R40.0 Somnolence (principal) ==